=== PATIENT | female | born 1975 | race American Indian/Alaskan Native ===

== ENCOUNTER 2018-03-26 19:00 | Emergency (ER) | payer MEDICAID ==
[2018-03-26] MEDS ORDERED: Sodium Chloride 0.9% 1,000 ML IV SCH (19:30)
[2018-03-26 21:23] VITALS: BP 118/67
--- NOTE | 2018-03-26 21:36 | EDM.PDOC ---
ED HPI GENERAL MEDICAL PROBLEM - General Chief Complaint: Syncope Stated Complaint: MEDICAL VIA [facility] Time Seen by Provider: 03/26/18 19:15 Source of Information: Reports: Patient History Limitations: Reports: No Limitations - History of Present Illness INITIAL COMMENTS - FREE TEXT/NARRATIVE: pt had 2 episodes of syncope this pm. She was cooking and the room was hot. She was doing alot of sweating and she passed out. She does not have a headache. She did not hit her head when she fell. She was clear when she woke up. Onset: Today, Sudden Duration: Hour(s): Location: Reports: Head Associated Symptoms: Reports: Syncope, Other ( She had 2 episodes of syncope. 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: Musculoskeletal History: Reports: Arthritis, Fracture, Fibromyalgia, Osteoarthritis, Osteoporosis, RA Psychiatric History: Reports: Depression - Infectious Disease History Infectious Disease History: Reports: Chicken Pox - Past Surgical History GI Surgical History: Reports: Cholecystectomy Female Surgical History: Reports: Section Social & Family History - Tobacco Use Smoking Status *Q: Current Every Day Smoker Years of Tobacco use: 20 Packs/Tins Daily: 1 - Caffeine Use Caffeine Use: Reports: Coffee ED ROS GENERAL - Review of Systems Review Of Systems: See Below Constitutional: Reports: No Symptoms HEENT: Reports: No Symptoms Respiratory: Reports: No Symptoms Cardiovascular: Reports: No Symptoms Endocrine: Reports: No Symptoms GI/Abdominal: Reports: No Symptoms : Reports: No Symptoms Musculoskeletal: Reports: No Symptoms, Other ( Pt is mildly tender in her rt foot where she hit the foot. ) Neurological: Reports: Syncope Psychiatric: Reports: No Symptoms ED EXAM, GENERAL - Physical Exam Exam: See Below Free Text/Narrative:: pt was at home cooking in a warm room. She was doing alot of sweating. She normally runs a low bp. Exam Limited By: No Limitations General Appearance: Alert, Mild Distress, Other (pt was alert and oriented on arrival. pupils are equal and reactive. ) Ears: Normal TMs Nose: Normal Inspection Throat/Mouth: Normal Inspection Head: Atraumatic Neck: Normal Inspection Respiratory/Chest: No Respiratory Distress Cardiovascular: Regular Rate, Rhythm GI/Abdominal: Soft, Non-Tender (Female) Exam: Deferred Rectal (Female) Exam: Deferred Back Exam: Normal Inspection Extremities: Normal Inspection Neurological: Alert, Oriented, Normal Cognition Psychiatric: Normal Affect Course - Vital Signs Last Recorded V/S: Last Vital Signs Temp 35.9 C 03/26/18 19:12 Pulse 75 03/26/18 21:22 Resp 20 03/26/18 21:22 BP 118/67 03/26/18 21:22 Pulse Ox 99 03/26/18 21:22 - Orders/Labs/Meds Orders: Active Orders 24 hr Category Date Time Status EKG Documentation Completion [RC] ASDIRECTED Care 03/26/18 19:45 Active Head wo Cont [CT] Stat Exams 03/26/18 19:45 Taken CULTURE URINE [RM] Stat Lab 03/26/18 21:24 Ordered DRUG SCREEN, URINE [URCHEM] Stat Lab 03/26/18 20:57 Ordered UA W/MICROSCOPIC [URIN] Urgent Lab 03/26/18 20:57 Ordered Sodium Chloride 0.9% [Normal Saline] 1,000 ml Med 03/26/18 19:30 Active IV ASDIRECTED EKG 12 Lead [EK] Routine Ther 03/26/18 19:45 Ordered Medication Orders Sodium Chloride (Normal Saline) 1,000 mls @ 500 mls/hr IV ASDIRECTED IGNACIO Last Admin: 03/26/18 19:28 Dose: 500 mls/hr Labs: Laboratory Tests 03/26/18 03/26/18 03/26/18 Range/Units 19:38 19:38 19:45 WBC 12.6 H (4.5-11.0) K/uL RBC 3.80 (3.30-5.50) M/uL Hgb 9.9 L (12.0-15.0) g/dL Hct 31.5 L (36.0-48.0) % MCV 83 (80-98) fL MCH 26 L (27-31) pg MCHC 31 L (32-36) % Plt Count 434 H (150-400) K/uL Neut % (Auto) 75 H (36-66) % Lymph % (Auto) 19 L (24-44) % [place] % (Auto) 5 (2-6) % Eos % (Auto) 0 L (2-4) % Baso % (Auto) 0 (0-1) % Sodium 141 (140-148) mmol/L Potassium 4.2 (3.6-5.2) mmol/L Chloride 107 (100-108) mmol/L Carbon Dioxide 26 (21-32) mmol/L Anion Gap 8.2 (5.0-14.0) mmol/L BUN 7 (7-18) mg/dL Creatinine 0.9 (0.6-1.0) mg/dL Est Cr Clr Drug Dosing 71.75 mL/min Estimated GFR (MDRD) > 60 (>60) Glucose 108 H (74-106) mg/dL Calcium 7.6 L (8.5-10.1) mg/dL Ferritin (8-388) ng/ml Total Bilirubin 0.2 (0.2-1.0) mg/dL AST 16 (15-37) U/L ALT 17 (12-78) U/L Alkaline Phosphatase 100 (46-116) U/L Troponin I < 0.017 (0.000-0.056) ng/mL Total Protein 5.5 L (6.4-8.2) g/dL Albumin 2.7 L (3.4-5.0) g/dL Globulin 2.8 (2.3-3.5) g/dL Albumin/Globulin Ratio 1.0 L (1.2-2.2) Urine Color Urine Appearance Urine pH (4.5-8.0) Ur Specific [place] (1.008-1.030) Urine Protein (NEGATIVE) mg/dL Urine Glucose (UA) (NEGATIVE) mg/dL Urine Ketones (NEGATIVE) mg/dL Urine Occult Blood (NEGATIVE) Urine Nitrite (NEGATIVE) Urine Bilirubin (NEGATIVE) Urine Urobilinogen (NORMAL) mg/dL Ur Leukocyte Esterase (NEGATIVE) Urine RBC (0-5) Urine WBC (0-5) Ur Epithelial Cells Amorphous Sediment Urine Bacteria Urine Mucus Urine Opiates Screen (NEGATIVE) Ur Oxycodone Screen (NEGATIVE) Urine Methadone Screen (NEGATIVE) Ur Propoxyphene Screen (NEGATIVE) Ur Barbiturates Screen (NEGATIVE) Ur Tricyclics Screen (NEGATIVE) Ur Phencyclidine Scrn (NEGATIVE) Ur Amphetamine Screen (NEGATIVE) U Methamphetamines Scrn (NEGATIVE) Urine MDMA Screen (NEGATIVE) U Benzodiazepines Scrn (NEGATIVE) U Cocaine Metab Screen (NEGATIVE) U Marijuana (THC) Screen (NEGATIVE) 03/26/18 03/26/18 03/26/18 Range/Units 20:21 20:57 20:57 WBC (4.5-11.0) K/uL RBC (3.30-5.50) M/uL Hgb (12.0-15.0) g/dL Hct (36.0-48.0) % MCV (80-98) fL MCH (27-31) pg MCHC (32-36) % Plt Count (150-400) K/uL Neut % (Auto) (36-66) % Lymph % (Auto) (24-44) % [place] % (Auto) (2-6) % Eos % (Auto) (2-4) % Baso % (Auto) (0-1) % Sodium (140-148) mmol/L Potassium (3.6-5.2) mmol/L Chloride (100-108) mmol/L Carbon Dioxide (21-32) mmol/L Anion Gap (5.0-14.0) mmol/L BUN (7-18) mg/dL Creatinine (0.6-1.0) mg/dL Est Cr Clr Drug Dosing mL/min Estimated GFR (MDRD) (>60) Glucose (74-106) mg/dL Calcium (8.5-10.1) mg/dL Ferritin 20 (8-388) ng/ml Total Bilirubin (0.2-1.0) mg/dL AST (15-37) U/L ALT (12-78) U/L Alkaline Phosphatase (46-116) U/L Troponin I (0.000-0.056) ng/mL Total Protein (6.4-8.2) g/dL Albumin (3.4-5.0) g/dL Globulin (2.3-3.5) g/dL Albumin/Globulin Ratio (1.2-2.2) Urine Color Yellow Urine Appearance Cloudy Urine pH 7.0 (4.5-8.0) Ur Specific [place] 1.010 (1.008-1.030) Urine Protein Negative (NEGATIVE) mg/dL Urine Glucose (UA) Normal (NEGATIVE) mg/dL Urine Ketones Negative (NEGATIVE) mg/dL Urine Occult Blood Negative (NEGATIVE) Urine Nitrite Negative (NEGATIVE) Urine Bilirubin Negative (NEGATIVE) Urine Urobilinogen Normal (NORMAL) mg/dL Ur Leukocyte Esterase Large (NEGATIVE) Urine RBC 0-5 (0-5) Urine WBC 10-20 H (0-5) Ur Epithelial Cells Rare Amorphous Sediment Few Urine Bacteria Few Urine Mucus Not seen Urine Opiates Screen Negative (NEGATIVE) Ur Oxycodone Screen Negative (NEGATIVE) Urine Methadone Screen Negative (NEGATIVE) Ur Propoxyphene Screen Negative (NEGATIVE) Ur Barbiturates Screen Negative (NEGATIVE) Ur Tricyclics Screen Negative (NEGATIVE) Ur Phencyclidine Scrn Negative (NEGATIVE) Ur Amphetamine Screen Negative (NEGATIVE) U Methamphetamines Scrn Negative (NEGATIVE) Urine MDMA Screen Negative (NEGATIVE) U Benzodiazepines Scrn Negative (NEGATIVE) U Cocaine Metab Screen Negative (NEGATIVE) U Marijuana (THC) Screen Presumptive positive H (NEGATIVE) Meds: Medications Generic Name Dose Route Start Last Admin Trade Name Freq PRN Reason Stop Dose Admin Sodium Chloride 1,000 mls @ 500 mls/hr 03/26/18 19:30 03/26/18 19:28 Normal Saline IV 500 mls/hr ASDIRECTED [facility] Administration - Re-Assessments/Exams Free Text/Narrative Re-Assessment/Exam: 03/26/18 21:34 Pt arrived with a history of syncope x2. She is alert and oriented at this time. A cat scan of the head was done which showed no acute process. Her lab indicated dehydration. Her hg was 9 which is not new for her. She has a history of RA Departure - Departure Time of Disposition: 21:36 Disposition: Home, Self-Care 01 Condition: Fair Clinical Impression: Dehydration, Anemia Referrals: PCP,None [Primary Care Provider] - Care Plan Goals: push fluids, low activity tonight, rtc if problems. - My Orders Last 24 Hours: My Active Orders 03/26/18 19:30 Sodium Chloride 0.9% [Normal Saline] 1,000 ml IV ASDIRECTED 03/26/18 19:45 EKG Documentation Completion [RC] ASDIRECTED Head wo Cont [CT] Stat EKG 12 Lead [EK] Routine 03/26/18 20:57 DRUG SCREEN, URINE [URCHEM] Stat UA W/MICROSCOPIC [URIN] Urgent 03/26/18 21:24 CULTURE URINE [RM] Stat - Assessment/Plan Last 24 Hours: My Active Orders 03/26/18 19:30 Sodium Chloride 0.9% [Normal Saline] 1,000 ml IV ASDIRECTED 03/26/18 19:45 EKG Documentation Completion [RC] ASDIRECTED Head wo Cont [CT] Stat EKG 12 Lead [EK] Routine 03/26/18 20:57 DRUG SCREEN, URINE [URCHEM] Stat UA W/MICROSCOPIC [URIN] Urgent 03/26/18 21:24 CULTURE URINE [RM] Stat
== END 2018-03-26 21:45 | disposition home or self-care (01) ==
LOC: JP.ED 19:00
DX: E86.0 Dehydration (principal); D64.9 Anemia, unspecified; F17.210 Nicotine dependence, cigarettes, uncomplicated; Z79.899 Other long term (current) drug therapy
CPT/HCPCS: 36415; 70450; 80053; 80305; 81001; 82728; 84484; 85025; 87086; 93005; 96360; 99285; J7030; 87088; 87186; 93010

== ENCOUNTER 2018-10-17 11:38 | Emergency (ER) | payer MEDICAID ==
[2018-10-17 12:38] VITALS: BP 147/70
[2018-10-17] MEDS ORDERED: Bacitracin Oint 1 GM U/D Packet TOP ONE (12:55)
--- NOTE | 2018-10-17 12:57 | EDM.PDOC ---
ED HPI GENERAL MEDICAL PROBLEM - General Chief Complaint: Laceration Stated Complaint: cut right finger Time Seen by Provider: 10/17/18 12:52 Source of Information: Reports: Patient, Provider, RN Notes Reviewed History Limitations: Reports: No Limitations - History of Present Illness INITIAL COMMENTS - FREE TEXT/NARRATIVE: 43-year-old female presents to the emergency department today, sent from the [facility], she had some trauma while loading wood stove this morning and had a crush type injury of the distal tip of digit #3 on her right hand she does have a laceration over the pad limited range of motion secondary to pain, the [facility] had no x-ray capability she was transferred here for further evaluation, received 2 mg Dilaudid IM prior to transfer Right Finger-Middle Pain Score (Numeric/FACES): 8 - Related Data Allergies Allergy/AdvReac Type Severity Reaction Status Date / Time No Known Allergies Allergy Verified 10/17/18 12:41 Home Meds: Home Meds Acetaminophen [Mapap] 650 mg PO QID PRN 05/29/14 [History] Ibuprofen 800 mg PO TID PRN 05/29/14 [History] Folic Acid 1 mg PO DAILY 04/30/16 [History] Methotrexate Sodium [Methotrexate] 2.5 mg PO ASDIRECTED 04/30/16 [History] Calcium Citrate/Vitamin D3 [[place] Calcium D (200 MG Calcium)] 1 tab PO DAILY [History] Gabapentin [Neurontin] 600 mg PO TID 03/26/18 [History] 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: Musculoskeletal History: Reports: Arthritis, Fracture, Fibromyalgia, Osteoarthritis, Osteoporosis, RA Psychiatric History: Reports: Depression - Infectious Disease History Infectious Disease History: Reports: Chicken Pox - Past Surgical History GI Surgical History: Reports: Cholecystectomy Female Surgical History: Reports: Section Social & Family History - Tobacco Use Smoking Status *Q: Light Tobacco Smoker Years of Tobacco use: 20 Packs/Tins Daily: 0.3 - Caffeine Use Caffeine Use: Reports: Coffee - Recreational Drug Use Recreational Drug Use: No ED ROS GENERAL - Review of Systems Review Of Systems: See Below Musculoskeletal: Reports: Hand Pain Skin: Reports: Wound ED EXAM, SKIN/RASH Exam: See Below Text/Narrative:: Examination of the right hand I do appreciate a 2 cm laceration distal tip digit #3 palmar surface right hand limited range of motion secondary to pain radial pulse is +2 sensation is intact ED SKIN PROCEDURES - Laceration/Wound Repair Right Middle Digit - 3rd (Middle) Lac/Wound length In cm: 2 Appearance: Subcutaneous Distal NVT: Neuro & Vascular Intact, No Tendon Injury Anesthetic Type: Digital Local Anesthesia - Lidocaine (Xylocaine): 1% with EPI Local Anesthetic Volume: 2cc Skin Prep: Saline Saline Irrigation (cc's): 60 Exploration/Debridement/Repair: Wound Explored, In a Bloodless Field, Explored to Base Closed with: Sutures Suture Size: 4-0 # of Sutures: 3 Suture Type: Interrupted Sterile Dressing Applied: Nurse Tetanus Status Addressed: Yes (2006) Complications: No Progress/Comments: Placed in an aluminum splint to protect the distals tuft by nurse Course - Vital Signs Last Recorded V/S: Last Vital Signs Temp 96.9 F 10/17/18 12:40 Pulse 104 H 10/17/18 12:40 Resp 18 10/17/18 12:40 BP 147/70 H 10/17/18 12:40 Pulse Ox 99 10/17/18 12:40 - Orders/Labs/Meds Orders: Active Orders 24 hr Category Date Time Status Fingers Third Digit Rt F7 [CR] Stat Exams 10/17/18 12:54 Taken Meds: Medications Discontinued Medications Generic Name Dose Route Start Last Admin Trade Name [place] PRN Reason Stop Dose Admin Bacitracin 1 dose 10/17/18 12:55 10/17/18 14:12 Bacitracin Oint 1 Gm TOP 10/17/18 12:56 1 dose ONETIME ONE Administration Lidocaine HCl 5 ml 10/17/18 12:55 10/17/18 14:12 Xylocaine-Mpf 1% INJECT 10/17/18 12:56 5 ml ONETIME ONE Administration Departure - Departure Time of Disposition: 14:24 Disposition: Home, Self-Care 01 Condition: Fair Clinical Impression: Open fracture of tuft of distal phalanx of finger Finger laceration Qualifiers: Encounter type: initial encounter Finger: middle finger Damage to nail status: with damage Foreign body presence: without foreign body Laterality: right Qualified Code(s): S61.312A - Laceration without foreign body of right middle finger with damage to nail, initial encounter - Discharge Information Referrals: Brook Wyman NP [Primary Care Provider] - Forms: ED Department Discharge Additional Instructions: Follow wound care instruction sheet, suture removal in 10 days, follow-up with orthopedics next week, call return to the emergency department worsening of symptoms - My Orders Last 24 Hours: My Active Orders 10/17/18 12:54 Fingers Third Digit Rt F7 [CR] Stat - Assessment/Plan Last 24 Hours: My Active Orders 10/17/18 12:54 Fingers Third Digit Rt F7 [CR] Stat Plan: Assessment Acuity = acute Site and laterality = distal tuft fracture digit #3 right hand, 2 cm laceration distal #3 right hand Etiology = secondary to crush injury Manifestations = pain Location of injury = Home Lab values = x-ray describes a fracture Plan Called discussed case with Dr. Suarez at 1345 did review the films with him, plan is to see him in clinic in 1 week protect the fracture with a aluminum splint, hydrocodone 5/325 one tablet by mouth 3 times a day when necessary total #10 for medication for pain control, also placed on Keflex 500 mg by mouth twice a day 7 days This note was dictated using [employer] voice recognition software please call with any questions on syntax or grammar.
--- NOTE | 2018-10-17 14:58 | CRLCR ---
INDICATION: Crush injury 3rd digit TECHNIQUE: Three views 3rd digit right hand COMPARISON: None FINDINGS: Bones: Alignment is normal. No fractures. Large osseous excrescence involving the lateral aspect of the distal tuft. Joint spaces: Unremarkable. Soft tissues: Unremarkable. IMPRESSION: No evidence of acute trauma. Large osseous excrescence involving the lateral aspect of the distal tuft 3rd digit. Dictated by Tank Ford MD @ 10/17/2018 2:56:36 PM Dictated by: Tank Ford MD @ 10/17/2018 14:56:40 (Electronically Signed)
== END 2018-10-17 14:46 | disposition home or self-care (01) ==
LOC: JP.ED 11:38
DX: S62.632B Displaced fracture of distal phalanx of right middle finger, initial encounter for open fracture (principal); F32.9 Major depressive disorder, single episode, unspecified; W23.1XXA Caught, crushed, jammed, or pinched between stationary objects, initial encounter; Z79.899 Other long term (current) drug therapy
CPT/HCPCS: 12001; 73140; 99284; J2001; 99283

== ENCOUNTER 2021-11-20 18:18 | Emergency (ER) | payer MEDICAID ==
[2021-11-20 18:31] VITALS: BP 120/75; PULSE 94
== END 2021-11-20 18:49 | disposition home or self-care (01) ==
LOC: JP.ED 18:18
DX: K04.7 Periapical abscess without sinus (principal); Z72.0 Tobacco use
CPT/HCPCS: 99282; 99283